=== PATIENT | male | born 1970 | race Caucasian/White ===

== ENCOUNTER 2021-03-29 23:08 | Emergency (ER) | payer OTHER, SELFPAY ==
[~2021-03-29 23:08] MED LIST: Iopamidol-370 76% 500 ML 1 ML ONE
[2021-03-29] MEDS ORDERED: Ketorolac Tromethamine 30 MG/ML VIAL ONE (23:41)
[2021-03-29] MEDS ORDERED: Ondansetron PF 4 MG/2 ML Vial ONE (23:41)
[2021-03-29] MEDS ORDERED: Morphine 4 MG/ML VIAL ONE (23:41)
[2021-03-29 23:46] LABS: #Basophils 0.1 thou/uL (0.0-0.2); #Eosinphils 0.2 thou/uL (0.0-0.7); #Lymphocytes 3.5 thou/uL (1.20-3.40); #Monocytes 0.6 thou/uL (0.11-0.59); #Neutrophils 5.1 thou/uL (1.40-6.50); %Basophils 0.8 % (0.0-1.0); %Eosinophils 1.6 % (0.0-10.0); %Lymphocytes 37.4 % (21.0-51.0); %Monocytes 6.2 % (0.0-10.0); Hemoglobin 16.6 g/dL (14.0-18.0); Mean Corpuscular HGB CONC 34.4 g/dL (32.0-36.0); Mean Corpuscular Hemoglobin 30.6 pg (27.0-31.0); Mean Corpuscular Volume 88.8 fL (78.0-98.0); Mean Platelet Volume 7.8 fL (7.4-10.4); Platelet Count 351 thou/uL (130-400); RBC Distribution Width 12.2 % (11.5-14.5); Red Blood Cell (RBC) Count 5.43 mill/uL (4.70-6.10); White Blood Cell (WBC) Count 9.4 thou/uL (4.8-10.8)
[2021-03-30 00:05] LABS: ALT (SGPT) 35 U/L (8-55); AST (SGOT) 42 U/L (5-34); Albumin 4.2 g/dL (3.5-5.0); Alkaline Phosphatase 73 U/L (40-110); Anion Gap 13 mmol/L (10-20); BUN (Urea Nitrogen) 12 mg/dL (8.9-20.6); Bilirubin, Total 0.5 mg/dL (0.2-1.2); Calc. Creatinine Clearance 0 mL/min (70-130); Calcium 9.6 mg/dL (7.8-10.44); Carbon Dioxide 25 mmol/L (22-29); Chloride 103 mmol/L (98-107); Globulin 2.5 g/dL (2.4-3.5); Glucose 115 mg/dL (70-105); Lipase 37 U/L (8-78); Protein, Total 6.7 g/dL (6.0-8.3); Sodium 137 mmol/L (136-145)
== END 2021-03-30 02:40 | disposition home or self-care (01) ==
LOC: ERS 23:08
DX: S22.42XA Multiple fractures of ribs, left side, initial encounter for closed fracture (principal); N28.1 Cyst of kidney, acquired; V43.92XA Unspecified car occupant injured in collision with other type car in traffic accident, initial encounter
CPT/HCPCS: 36415; 71045; 71260; 74177; 80053; 83690; 84484; 85025; 86850; 86900; 86901; 93005; 96374; 96375; G0390; J1885; J2270; J2405; Q9967